=== PATIENT | female | born 1985 | race Caucasian/White ===

== ENCOUNTER 2021-02-23 14:01 | Inpatient (IN) ==
[2021-02-23] MEDS ORDERED: OXYTOCIN/0.9 % SODIUM CHLORIDE 30 UNITS/500 ML BAG IV ONE (15:42)
[2021-02-23 16:56] LABS: Cocaine Ur Negative (NEGATIVE); Urine Barbiturate Negative (NEGATIVE); Urine Benzodiazepines Negative (NEGATIVE); Urine Opiates Negative (NEGATIVE); Urine PCP Negative (NEGATIVE)
[2021-02-23 17:09] LABS: Urine THC Positive (NEGATIVE)
[2021-02-23] MEDS: RINGER'S SOLUTION,LACTATED 1,000 ML IV PRN ×2 (17:47→19:20)
[2021-02-23] MEDS ORDERED: BUPIVACAINE HCL/EPINEPHRINE 50 ML VIAL ONE (18:08)
[2021-02-23] MEDS ORDERED: ceFAZolin SODIUM 1 GM VIAL ONE (18:15)
--- NOTE | 2021-02-23 18:17 | ANES ---
Anesthesia Pre Procedure Eval HOME MEDICATIONS Vits96/Iron Fum/Folic [ S] 1 tab PO DAILY 07/12/16 [Last Taken 07/11/16] ascorbate calcium (vitamin C) 500 mg tablet 500 mg PO BID 01/04/21 [Last Taken Unknown] ferrous sulfate 325 mg (65 mg iron) tablet 325 mg PO BID tab 01/04/21 [Last Taken Unknown] Allergies/Adverse Reactions: Allergies Allergy/AdvReac Type Severity Reaction Status Date / Time No Known Allergies Allergy Verified 02/23/21 13:32 - Planned Procedure Planned Procedure: Section with abdomincal scar revision Medication List Reviewed:: Yes Allergies Verified: Yes Medical History (Last Reviewed 02/23/21 @ 18:15 by Jason Baca CRNA) Tobacco abuse (Chronic) Marijuana use (Chronic) HSV antigen DIF positive (Chronic) Abnormal Pap smear of cervix Onset Date: ~12/02/15 LSIL, +HR HPV 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 Anemia Onset Date: ~04/18/16 w/ Chlamydia Onset Date: ~2004 Hypertension Onset Date: ~12/2016 Single umbilical artery Onset Date: ~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/16 Surgical History (Last Reviewed 02/23/21 @ 18:15 by Jason Baca CRNA) Previous section (Chronic) x 2 H/O LEEP Onset Date: ~11/29/16 MERI II H/O section Onset Date: ~2015 2005- size; 2015-repeat History of colposcopy Onset Date: ~10/12/16 MERI II Family History (Last Reviewed 02/23/21 @ 18:15 by Jason Baca CRNA) Mother Alive and well Father Alive and well - Family Anesthesia History Family History:: no untoward family reactions to anesthesia, no familial bleeding tendencies, no family history of clotting disorders, no family history of premature - Airway/Neck/Teeth Within Normal Limits:: Yes Teeth Condition: intact Neck Exam: full range of motion Mallampatti Score: 2 Thyromental (T-M) distance: > 6 cm Mandibulo Hyoid distance: > 3 cm - Respiratory Respiratory Physical: lungs clear Smoking Status: Never smoker Sleep Apnea currently treated: No Sleep Apnea by current assessment: No - Cardiovascular Tolerate Activity: Fair Heart Sounds: S1 & S2, Regular - Gastrointestinal NPO since: This afternoon - Anesthesia Assessment and Plan ASA Class: PS, II, E Anesthesia Type Plan: Block - Bilateral TAP block for post op pain relief, Spinal
[2021-02-23] MEDS ORDERED: SENNOSIDES 8.6 MG TABLET PO PRN (20:18)
[2021-02-23] MEDS ORDERED: ONDANSETRON HCL/PF 2 MG/ML VIAL IV PRN (20:18)
[2021-02-23] MEDS ORDERED: SIMETHICONE 80 MG TAB.CHEW PO PRN (20:18)
[2021-02-23] MEDS ORDERED: IBUPROFEN 800 MG TABLET PO PRN (20:18)
[2021-02-23] MEDS ORDERED: BISACODYL 10 MG SUPP.RECT RC PRN (20:18)
--- NOTE | 2021-02-23 20:20 | ANES ---
Anesthesia Procedure Note Procedure Note: ANESTHESIA PROCEDURE NOTE Date of Procedure: 02/23/2021 Time of procedure: 8 PM. Performed by: ALEXI Carmona CRNA, MSN Optical Lab Technician: Cyndy Mario RN. Preprocedure diagnosis: Post section pain. Post procedure diagnosis: Same. Procedure: Bilateral TAP block Indications: Post section pain relief. Findings: See below. Details of the procedure: The patient was brought to PACU and placed in the supine position. The patient was prepped with chlorhexidine and using ult rasound guidance the 3 abdominal muscular planes were identified and lidocaine 1% was infiltrated to the skin of the intended injection site. Under ultrasound guidance the the internal oblique and transverse this abdominis muscle layers were approached with visualization of a 4 inch block needle until the tip of the needle rested in the plane between the muscles. 25 mL bupivacaine 0.5% with 1-200,000 epinephrine was injected and the procedure was repeated on the other side. Please see radiology/ultrasound report for details and images of the procedure. EBL: 0 Fluids: N/A. Specimen: N/A. Post procedure condition: The patient tolerated the procedure well. No complications were noted. Thank you for this consultation. Jason Baca CRNA, ARNP, MSN
--- NOTE | 2021-02-23 20:21 | ANES ---
Post Anesthesia Discharge - Transfer of Care Transfer of Care handoff given to nurse: Yes - Discharge from PACU Discharge from PACU when meets criteria: Yes
--- NOTE | 2021-02-23 20:21 | ANES ---
Post Anesthesia Assessment - Vital Signs Vitals: Last Vital Signs Temp 36.8 C 02/23/21 20:15 Pulse 96 02/23/21 20:15 Resp 14 02/23/21 20:15 BP 111/60 02/23/21 20:15 Pulse Ox 100 02/23/21 20:15 Airway Patency: Normal - Mental Status Level Of Consciousness: Awake, Alert, Appropriate - Pain Level Pain Score: 0 - N/V Assessment Nausea/Vomiting Presence: None Dehydration:: No - Additional Notes Comments:: Comfortable on Transfer.
--- NOTE | 2021-02-23 20:22 | OR ---
Operative Report - Dictated Report Narrative: Indication: 35-year-old 3 para 2 admitted at 37-1/7 weeks for repeat low transverse section due to preeclampsia with mild features. status: Urgent Pre Operative Diagnosis: 37-1/7-week intrauterine . Prior section. Preeclampsia with mild features. Post Operative Diagnosis: Same. Procedure: Repeat low transverse section. Surgeon: Yamileth Dickerson DO Multimedia Teacher: OR Staff Anesthesia: Spinal, TAP block Estimated Blood Loss: 250 mL Urine Output: 150 mL clear urine Fluids Replacement: 900 mL Drains: Pisano to gravity Surgical Complications: None Specimens: Placenta to pathology Findings: Male born at 1906 on 02/23/2020 with Apgars of 8 and 9, weighing 3732 g in cephalic presentation. Significant separation of rectus muscles in the lower portion of the abdomen. Normal uterus, tubes, ovaries Technique: The patient was taken to the operating room and placed in dorsal supine position with a left lateral tilt. After adequate spinal anesthesia, pisano catheter inserted, SCDs placed, and 2 g of Ancef given preoperatively, the abdominal cavity was entered using sharp and blunt dissection. Two rolled laps were placed in the pericolic gutters on either side of the uterus. A transverse incision was made in the lower uterine segment and extended laterally and upwardly with digital traction. Clear fluid was noted upon amniotomy. The infant was delivered easily. After approximately 30 seconds, the cord was clamped and cut and infant was handed off to awaiting janitorial assistant. The placenta was allowed to deliver spontaneously. The uterus was cleared of clot and debris. Uterine incision was closed with 0 Vicryl using a running stitch. A second imbricating layer was placed. Excellent hemostasis was noted. The rolled laps were removed from the abdominal cavitiy. The peritoneum was closed with a running 3-0 Monocryl. The same suture was used to approximate the rectus and pyramidalis muscles. The fascia was closed with a running 0 Vicryl. The subcutaneous layer was closed with a running 3-0 Monocryl. The same suture was used to approximate the subdermal layer. The skin was closed with a running 4-0 Monocryl and Dermabond. Sponge, lap, needle, and instrument count were correct x 2. Disposition: To post anesthesia care unit in good condition History for MU History for MU Definition: * The number of deliveries resulting in a live the patient experienced prior to current hospitalization * The previous delivery of live twins or any live multiple gestation is considered one live event. *If primagravida or nulliparous is documented select zero for the number of previous live births. Live Events: Live Events: 2
[2021-02-23] MEDS: ASCORBIC ACID 500 MG TABLET PO SCH (21:08)
[2021-02-23] MEDS: FERROUS SULFATE 325 MG TABLET PO SCH (21:08)
[2021-02-23] MEDS: DOCUSATE SODIUM 100 MG CAPSULE PO SCH (21:08)
[2021-02-23] MEDS: oxyCODONE HCL/ACETAMINOPHEN 1 TAB TABLET PO PRN (21:08)
[2021-02-24] MEDS: oxyCODONE HCL/ACETAMINOPHEN 1 TAB TABLET PO PRN ×7 (02:22→22:37)
[2021-02-24] MEDS: ENOXAPARIN SODIUM 40 MG/0.4 ML SYRG SC SCH (05:11)
[2021-02-24] MEDS ORDERED: ceFAZolin SODIUM 1 GM VIAL IV PRN (06:00)
[2021-02-24] MEDS: IBUPROFEN 800 MG TABLET PO PRN ×3 (06:12→19:33)
[2021-02-24] MEDS: PRENATAL VITS96/IRON FUM/FOLIC 1 TAB TABLET PO SCH (09:08)
[2021-02-24] MEDS: FERROUS SULFATE 325 MG TABLET PO SCH (09:08)
[2021-02-24] MEDS: ASCORBIC ACID 500 MG TABLET PO SCH (09:08)
[2021-02-24] MEDS: DOCUSATE SODIUM 100 MG CAPSULE PO SCH (09:08)
--- NOTE | 2021-02-24 09:12 | PN ---
Subjective - Date and Time Seen Date: 02/24/21 Time: 09:11 Objective - Vitals Vitals: Last Vital Signs Temp 36.8 C 02/24/21 07:50 Pulse 74 02/24/21 07:50 Resp 18 02/24/21 07:50 BP 105/70 02/24/21 07:50 Pulse Ox 99 02/24/21 07:50 Patient denies complaints. Specifically denies headache, visual changes, or epigastric pain. Tolerating regular diet. Ambulating without difficulty. Pain well controlled. Lochia wnl. Abdomen - soft, appropriately tender Incision -clean, dry, intact uterus - firm, at umbilicus -1 No calf tenderness Impression: Post op day #1 s/p repeat section. Preeclampsia with mild features-resolved. Plan: Continue routine post-operative/ care - Abnormal Lab Findings Abnormal Lab Findings: Abnormal Lab Results 02/23/21 Range/Units 16:20 Urine Marijuana (THC) Positive H (NEGATIVE) Cauti Physician Documentation - Urinary Catheter Management Urethral (Pruitt) Date of Insertion: 02/23/21 Time of Insertion: 18:50 Date of Removal: 02/24/21 Time of Removal: 07:50
[2021-02-25] MEDS: oxyCODONE HCL/ACETAMINOPHEN 1 TAB TABLET PO PRN ×5 (05:03→19:43)
[2021-02-25] MEDS: IBUPROFEN 800 MG TABLET PO PRN ×3 (05:03→19:44)
[2021-02-25] MEDS: DOCUSATE SODIUM 100 MG CAPSULE PO SCH ×4 (06:39→21:25)
[2021-02-25] MEDS: FERROUS SULFATE 325 MG TABLET PO SCH ×4 (06:39→21:25)
[2021-02-25] MEDS: ASCORBIC ACID 500 MG TABLET PO SCH ×4 (06:40→21:25)
[2021-02-25] MEDS: ENOXAPARIN SODIUM 40 MG/0.4 ML SYRG SC SCH (06:43)
[2021-02-25] MEDS: PRENATAL VITS96/IRON FUM/FOLIC 1 TAB TABLET PO SCH ×2 (07:57→08:08)
--- NOTE | 2021-02-25 15:39 | PN ---
Subjective - Date and Time Seen Date: 02/25/21 Time: 15:34 Objective - Vitals Vitals: Last Vital Signs Temp 37 C 02/25/21 12:09 Pulse 81 02/25/21 12:09 Resp 16 02/25/21 12:09 BP 141/84 H 02/25/21 12:09 Pulse Ox 100 02/25/21 12:09 Patient denies complaints. Specifically denies headache, visual changes, or epigastric pain. Ambulating well. Tolerating regular diet. Pain well controlled. Lochia wnl. Abdomen - soft, appropriately tender Incision -clean, dry, intact uterus - firm, at umbilicus -2 No calf tenderness Impression: Post op day #2 s/p repeat section. Monitor blood pressure closely. Plan: Continue routine post-operative/ care. Observe for signs/symptoms of preeclampsia. Cauti Physician Documentation - Urinary Catheter Management Urethral (Pruitt) Date of Insertion: 02/23/21 Time of Insertion: 18:50 Date of Removal: 02/24/21 Time of Removal: 07:50
[2021-02-26] MEDS: ENOXAPARIN SODIUM 40 MG/0.4 ML SYRG SC SCH (04:34)
[2021-02-26] MEDS: IBUPROFEN 800 MG TABLET PO PRN ×2 (04:38→14:13)
[2021-02-26] MEDS: oxyCODONE HCL/ACETAMINOPHEN 1 TAB TABLET PO PRN ×3 (04:39→14:13)
[2021-02-26 07:25] VITALS: BP 127/79
[2021-02-26] MEDS: DOCUSATE SODIUM 100 MG CAPSULE PO SCH (09:31)
[2021-02-26] MEDS: FERROUS SULFATE 325 MG TABLET PO SCH (09:31)
--- NOTE | 2021-02-26 10:17 | PN ---
Subjective - Date and Time Seen Date: 02/26/21 Time: 10:03 Objective - Vitals Vitals: Last Vital Signs Temp 36.8 C 02/26/21 07:19 Pulse 73 02/26/21 07:19 Resp 18 02/26/21 07:19 BP 127/79 02/26/21 07:19 Pulse Ox 99 02/26/21 07:19 Patient denies complaints. Bottlefeeding. Ambulating without difficulty. Tolerating regular diet. Pain well controlled. Lochia wnl. Abdomen - soft, appropriately tender Incision -clean, dry, intact uterus - firm, at umbilicus -3 No calf tenderness Impression: Post op day #3 s/p repeat section. Plan: Routine discharge instructions Cauti Physician Documentation - Urinary Catheter Management Urethral (Pruitt) Date of Insertion: 02/23/21 Time of Insertion: 18:50 Date of Removal: 02/24/21 Time of Removal: 07:50 Assessment/Plan - Problems/Diagnosis (1) S/P repeat low transverse Problem: Acute (2) HSV antigen DIF positive Problem: Chronic (3) Marijuana use Problem: Resolved (4) Previous section Problem: Chronic (5) Tobacco abuse Problem: Chronic
--- NOTE | 2021-02-26 10:18 | DS ---
OB Discharge Summary (1) S/P repeat low transverse Status: Acute (2) HSV antigen DIF positive Status: Chronic (3) Marijuana use Status: Resolved (4) Previous section Status: Chronic (5) Tobacco abuse Status: Chronic (6) Pre-eclampsia Status: Resolved Qualifiers: Trimester: third trimester Qualified Code(s): O14.93 - Unspecified pre- eclampsia, third trimester Delivery Date: 02/23/21 Delivery Time: 19:07 :: 3 Para:: 3 Gestational weeks:: 37 Gestational days:: 1 Intrapartum Procedures: Secondary Section, Delivery-Low Transverse, Anesthesia - Spinal Procedures: None Discharge Diagnosis: Term -Delivered - Discharge Information Date of Discharge: 02/26/21 Hospital Course: 5-year-old G3 now para 3 admitted at 37 1/7 weeks for repeat low transverse section due to mild preeclampsia. Blood pressures quickly resolved after delivery and her course was uncomplicated. She was discharged to home on postop day #3 with routine discharge instructions and preeclampsia precautions. Discharge Location: Home Disposition: Home self-care Condition: Good Activity on Discharge:: Activity as tolerated, Pelvic Rest, No lifting Discharge Diet: General/regular food Additional Patient Instructions (free text): Rosanna, Your follow up appt is on 03/03/21 @ 10:30AM with Dr Dickerson. Baby's follow up appt is on 02/28/21 @ 1:15PM with Dr Gale. Feed him on demand or at least every 2-[address] him on his back in his own crib or bassinet for sleep. No pillows, blankets, stuffed animals, or bumper pads in his sleep space. Please call with any questions/concerns. [facility] [phone], [facility] [phone], [facility] [phone]. Prescriptions (Any new or edited meds): RX: Ibuprofen [Motrin] 200 - 800 mg PO Q6H PRN #100 tab PRN Reason: Pain RX: oxyCODONE HCL/ACETAMINOPHEN [Percocet 5 MG/325 MG] 1 tab PO Q4H PRN #10 tab PRN Reason: Moderate Pain Transmission Status: Received by [id number] Complete Home Medications List: Complete Home Medication List: RX: Vits96/Iron Fum/Folic [ S] 1 tab PO DAILY 07/12/16 ascorbate calcium (vitamin C) 500 mg tablet 500 mg PO BID 01/04/21 ferrous sulfate 325 mg (65 mg iron) tablet 325 mg PO BID tab 01/04/21 RX: Ibuprofen [Motrin] 200 - 800 mg PO Q6H PRN #100 tab 02/24/21 RX: oxyCODONE HCL/ACETAMINOPHEN [Percocet 5 MG/325 MG] 1 tab PO Q4H PRN #10 tab 02/24/21 - Plan Discharge to:: Home Follow up in office in:: 1 week - Information Infant Sex: Male Score 1 min: 8 Score 5 min: 9 Complications: Other - grunting, CPAP for 20 min
[2021-02-26] MEDS: PRENATAL VITS96/IRON FUM/FOLIC 1 TAB TABLET PO SCH (13:33)
[2021-02-26] MEDS: ASCORBIC ACID 500 MG TABLET PO SCH (13:33)
== END 2021-02-26 15:00 | disposition home or self-care (01) | DRG 787 ==
LOC: OB 14:01
PROVIDERS: ADMIT Obstetrics & Gynecology; ATTEND Obstetrics & Gynecology
DX: O14.04 Mild to moderate pre-eclampsia, complicating childbirth; O99.324 Drug use complicating childbirth; Z37.0 Single live birth; O99.334 Smoking (tobacco) complicating childbirth; Z20.822 Contact with and (suspected) exposure to COVID-19; F12.90 Cannabis use, unspecified, uncomplicated; O34.211 Maternal care for low transverse scar from previous cesarean delivery; O98.52 Other viral diseases complicating childbirth; Z3A.37 37 weeks gestation of pregnancy